=== PATIENT | male | born 1965 | race Caucasian/White ===

== ENCOUNTER 2025-05-27 12:53 | Inpatient (IN) | payer OTHER, SELFPAY ==
[2025-05-27] VITALS (11 sets, daily range): BP systolic 125–146; BP diastolic 80–102; BMI 25.8
--- NOTE | 2025-05-27 07:20 | ED.GENMED ---
History of Present Illness
General
Chief Complaint: Bowel Problem
Source: patient
Exam Limitations: none
Time Seen by Provider: 05/27/25 06:55
Nursing documentation reviewed up to this point in time: agreed with
History of Present Illness
History of Present Illness:
60-year-old male complaining of abdominal pain and constipation for the past 4 days he has had some nausea and vomiting.
Past History
Past History
ED Past Medical History: None
ED Past Surgical History: Orthopedic (left leg surgery)
Social History
Tobacco: Non-smoker
Alcohol: Occasional
Drug: None
Living: with family
Employment: Employed
Review of Systems
Review of Systems
Allergies reviewed?: Yes
All Other Systems: Not applicable
Constitutional: Reports no symptoms
EENT: Reports no symptoms
Respiratory: Reports no symptoms
Cardiac: Reports no symptoms
ABD/GI: Reports nausea, vomiting and constipated
: Reports no symptoms
Musculoskeletal: Reports no symptoms
Skin: Reports no symptoms
Neurological: Reports no symptoms
Endocrine: Reports no symptoms
Hematologic/Lymphatic: Reports no symptoms
Psychiatric: Reports no symptoms
Phy Exam
Physical Exam
Physical Exam:
Physical Exam
General: no apparent distress, not acutely ill
Neck: supple. no meningeal signs. normal posterior pharynx
Heart: s1/s2 regular rate and rhythm, no murmur. equal radial
pulses.
HEENT: Pupils equal round reactive to light, EOMI
Lungs: no acute respiratory distress. clear bilaterally
Abdomen: normal bowel sounds. right side abdominal tenderness. no CVAT, guaiac neg brown stool, no impaction
Neuro: alert and oriented. no focal neurological deficits cranial nerves II through XII intact
Skin: no rash
Psychiatric: well kept. interactive and cooperative
Extremities: no edema. no calf tenderness. negative homans. good distal pulses
Course
Orders/Labs/Results
Orders:
Orders
05/27/25 07:17
IV Insert/Care/Rem.- Treatment PRN
Urinalysis Reflex To Culture Urgent
05/27/25 07:18
CT Abd/Pel (IV only)-DH only Urgent
Comment:
Reason For Exam: right side abd pain
Iohexol [Omnipaque] See Protocol PO NOW STA
05/27/25 07:36
Complete Blood Count/With Diff Urgent
Comprehensive Metabolic Panel Urgent
Lipase Urgent
05/27/25 12:23
Admit/Transfer Patient As Directed
Co-Sign Provider:
Level of Care: Inpatient admission
Assign to:: Medical/Surgical
Physician / Group: Dr. Kunal Jenkins/Hospitalists
Diagnosis: Large bowel obstruction
Reason for Hospitalization: Large bowel obstruction
Expected length of stay greater than two midnights?: Yes
ELOS- Estimated Length of Stay in days: 3
I certify the patient meets the requirements for IP care: Yes
05/27/25 12:24
PRN Pain Medication Management As Directed
May give lesser potent ordered pain med per pt: Yes
preference::
Protocol:: Medication orders for pain may be administered in a
manner that supports deferring to patient preference
when the pt is:
- Requesting an ordered lesser potent pain medication.
Least to most potent pain medications are defined
as: acetaminophen < NSAID < tramadol < opioids
(morphine, oxycodone, hydromorphone).
- Requesting a lesser dose of the same medication IF
ORDERED.
- Requesting a less intrusive route of administration
if both routes are prescribed by the provider (PO <
IV).
05/27/25 12:26
Code Status As Directed
Resuscitation Status: Full Code
05/27/25 12:39
Consult Colorectal Surgery [ColoRectal Surgery Consult] Routine
Consulting Provider: Nadeem Archer
Was physician already notified: Yes
Reason for consult: Large Bowel Obstruction, concern for colon cancer on CT imaging
Abnormal Lab Results
05/27/25
07:36
WBC 12.0 H 10^3/uL
(4.8-10.8)
Absolute Neuts (auto) 10.3 H 10^3/uL
(1.4-6.5)
Neutrophils % 86.2 H %
(42.2-75.2)
Lymphocytes % 9.7 L %
(20.5-51.1)
Glucose 122 H mg/dl
(70-99)
Calcium 10.3 H mg/dl
(8.4-10.2)
05/27/25 07:36
05/27/25 07:36
Vital Signs
Initial and Last Documented VS:
Initial Vital Signs
Temp Pulse Resp BP Pulse Ox
98.0 F 80 16 125/90 97
05/27/25 06:21 05/27/25 06:21 05/27/25 06:21 05/27/25 06:21 05/27/25 06:21
Last Documented Vital Signs
Temp Pulse Resp BP Pulse Ox
98.4 F 74 16 131/82 96
05/27/25 10:17 05/27/25 08:43 05/27/25 08:43 05/27/25 12:00 05/27/25 12:00
MDM/Problems Addressed
Differential Diagnosis Includes:
Bowel obstruction diverticulitis, appendicitis
MDM/Problems Addressed:
60-year-old male with large bowel obstruction, bowel thickening concerning for colon cancer. Admit to hospitalist discussed with colorectal surgery who will see patient.
*Radiology
Radiology exam reviewed: radiology read reviewed (CT abdomen pelvis shows large bowel obstruction and thickened bowel wall)
*Pulse Oximetry
SaO2: 97
Oxygen Mode of Delivery: Room air
Patient hypoxic: no
*Critical Care Note
Total Time (30-74mins, 75-104mins- exclusive of procedures): Not Applicable
Patient Management
Social determinants of health affecting care: Living situation and Strong social support
Discussion with other providers: Hospitalist and Oceanographic Meteorologist (Colorectal surgery Dr. Archer)
Escalation/DeEscalation of care consider admission/obs:
Admit indicated
ED Attending Note
-
Portions of this chart may have been created with voice recognition software.� Occasional wrong word or��sound alike� substitutions may have occurred due to the inherent limitations of voice recognition software.
Discharge Plan
Departure
Patient Disposition: Admit
Date of Disposition: 05/27/25
Time of Disposition: 10:33
Admit to: Med/Surg
Presentation/result/management discussed w/ accepting MD/DO: Hospitalist
Patient with high blood pressure during this ER visit?: Yes
Condition: Good
Discharge Problem:
Large bowel obstruction
Interventions
Interventions:
*Risk Screen - Suicide Last Done: 05/27/25 06:21
*General Assessment Last Done: 05/27/25 06:21
*Neglect/Abuse Screening Last Done: 05/27/25 06:21
*ED- Fall Risk Assessment Last Done: 05/27/25 06:21
*ED COVID-19 Vaccine History Last Done: 05/27/25 06:21
UQ-Ampzsj-Vzicnhqyes Assessment Last Done: 05/27/25 06:38
[2025-05-27] MEDS: OMNIPAQUE 50 ML PO (07:45)
[2025-05-27 07:54] LABS: Hematocrit 46.1 % (39.0-52.0); Hemoglobin 15.9 g/dL (13.0-18.0); Mean Corp Hgb Conc. 34.5 g/dL (33.0-37.0); Mean Corpuscular Volume 84.4 fL (80.0-94.0); Nucleated Red Blood Cells % 0 % (-); Platelet Count 281 10^3/uL (130-400); Red Cell Dist. Width 13.2 % (11.5-14.5)
[2025-05-27 09:31] LABS: ALT (SGPT) 15 U/L (0-50); AST (SGOT) 18 U/L (17-59); Albumin 4.5 g/dl (3.5-5.0); Alkaline Phosphatase 87 U/L (38-126); Blood Urea Nitrogen 16 mg/dl (9-20); Calcium 10.3 mg/dl (8.4-10.2); Carbon Dioxide 22 mmol/L (22-30); Chloride 106 mmol/L (98-107); Estimated Creatinine Clearance 97 ml/min; Glucose 122 mg/dl (70-99); Lipase 47 U/L (23-300); Potassium 4.1 mmol/L (3.5-5.1); Sodium 138 mmol/L (135-145); Total Protein 7.0 g/dl (6.3-8.2); eGFR > 60.00
--- NOTE | 2025-05-27 10:44 | HPS.HSE ---
Family Physician
-
Family Physician: * NONE
Chief Complaint
-
Abdominal Discomfort, No Bowel Movement
History of Present Illness
60 y/o male with history of left lower extremity orthopedic surgery, presented with no bowel movement since May 23, 2025. Patient says that he has been having on and off abdominal pressure sensation, he also vomited this morning. He denied fever,
chills, chest pain, shortness of breath or any other symptoms.
Medical History
Past Medical History
Past Medical History: Reports None
Past Surgical History: Reports Orthopedic (Left Lower Extremity Surgery)
Social History
Tobacco: Non-smoker
Alcohol: Occasional
Drug: None
Family History
Family History: Not pertinent
Allergies / Home Medications
Allergies reflects when Allergies were last updated in [facility].
Home Medications with original date entered in [facility]
Allergy/Medication List:
Allergies
Allergy/AdvReac Type Severity Reaction Status Date / Time
No Known Allergies Allergy Unverified 05/27/25 07:44
Home Medications
No Meds [No Current Medications] 05/27/25
Review of Systems
-
A 12 point ROS was completed and negative except as noted: Yes
Physical Exam
Vital Signs
Vital Signs
Temp Pulse Resp BP Pulse Ox
98.4 F 74 16 135/83 97
05/27/25 10:17 05/27/25 08:43 05/27/25 08:43 05/27/25 10:00 05/27/25 10:00
Physical Exam
General: No Apparent Distress
HEENT: NormoCephalic and Moist mucous membranes
Respiratory: Clear
Cardiac: S1/S2 and Regular Rhythm
GI: Soft, Normal Bowel Sounds and Tender
Musculoskeletal: No Cyanosis and No Edema
Skin: Warm and Dry
Neuro: Awake, Alert and AO x 3
Psych: Calm and Intact Judgment/Insight
Laboratory Results
-
05/27/25 07:36
05/27/25 07:36
Laboratory Results
Total Bilirubin 1.0 mg/dl (0.2-1.3) 05/27/25 07:36
AST 18 U/L (17-59) 05/27/25 07:36
ALT 15 U/L (0-50) 05/27/25 07:36
Alkaline Phosphatase 87 U/L (38-126) 05/27/25 07:36
Lipase 47 U/L (23-300) 05/27/25 07:36
Impression/Plan
-
Assessment/Plan
Presentation with abdominal pressure, constipation, vomiting
Large bowel obstruction with transition at the proximal descending colon with associated eccentric wall thickening suspicious for malignancy
-NPO, IV fluids, and pain control
-Colorectal surgery consult
-Possible stent (transfer to [place] for the procedure) or surgery later today as per Dr. Archer
History of LLE orthopedic surgery
DVT Prophylaxis: Lovenox (may need to hold if patient is going for surgery today)
Code Status: Full Code
--- NOTE | 2025-05-27 12:38 | CON.CRS ---
Consultation
-
Date/Time Consultation Requested: 05/27/2025, 10:36
Date/Time Consultation Performed: 05/27/2025, 12:35
Requesting Provider: Kunal Jenkins MD
Performing Provider: Garry Acrher MD
Reason for Consultation: LBO
Medical History
-
Chief Complaint: Abdominal pain
History of Present Illness:
60-year-old male, with no PMH, presents to [facility] due to five days of constipation and abdominal pain. He states his last bowel movement was on May 22, 2025 and he thought it was was unusual given he ate several meals without
producing a bowel movement. He took senna and Colace a few days ago which made his constipation worse and well as increasing abdominal pain every 20 minutes. He has been nauseous and made himself vomit last evening because he felt so full. He
noticed a lump in his left upper quadrant of his abdomen and along with the abdominal pain, decided to go to the ER. He was nauseous yesterday but not today. He denies any unintentional weight loss. He is urinating without difficulty. Denies any
blood in his stool. His pain is about a 7 out of 10 and comes and goes. He describes the feeling in his abdomen like 'cement'. Recently he has started hiccuping over the past 24 hours.
He has never had a colonoscopy or Cologuard. Denies prior abdominal surgery. Denies a family history of colon or rectal cancer. Denies use of blood thinners. He has no past medical history and is not on any medications. WBC was 12.0 on
admission to the ER. His vitals have remained stable. CT A/P shows large bowel obstruction with transition at the proximal descending colon as above. At the level of transition, there is abnormal eccentric wall thickening which is suspicious for
malignancy. This could be further evaluated with colonoscopy. There is associated small volume free fluid within the pelvis. Given these findings, we have been consulted for surgical opinion.
Past Medical History
Past Medical History: None
Past Surgical History: Orthopedic (left leg )
Social History
Tobacco: Non-Smoker
Drug: None
Living: With Family
Family History
Family History: Reviewed & Not Pertinent
Allergies / Home Medications
Allergy/AdvReac Type Severity Reaction Status Date / Time
No Known Allergies Allergy Unverified 05/27/25 07:44
�Medication �Instructions �Recorded �Confirmed �Type
No Meds [No Current Medications] 05/27/25 05/27/25 History
Review of Systems
-
History Source: Patient
Abdomen/GI: Abdominal Pain, Nausea, Vomiting and Constipated
A 10 point review of systems was completed, and was negative except as per HPI.
Physical Exam
Vital Signs
Temp 98.4 F 05/27/25 10:17
Pulse 74 05/27/25 08:43
Resp Rate 16 05/27/25 08:43
Blood pressure 131/82 05/27/25 12:00
SaO2 96 05/27/25 12:00
05/26/25 05/27/25 05/28/25
06:59 06:59 06:59
Actual Weight 79.2 kg
Body Mass Index (BMI) 25.8
Lab Results / Allergies
05/27/25 07:36
05/27/25 07:36
WBC 12.0 10^3/uL (4.8-10.8) H 05/27/25 07:36
Hgb 15.9 g/dL (13.0-18.0) 05/27/25 07:36
Hct 46.1 % (39.0-52.0) 05/27/25 07:36
Plt Count 281 10^3/uL (130-400) 05/27/25 07:36
Abs Immat Gran (auto) 0.0 10^3/uL (0-0.05) 05/27/25 07:36
Neutrophils % 86.2 % (42.2-75.2) H 05/27/25 07:36
Allergy/AdvReac Type Severity Reaction Status Date / Time
No Known Allergies Allergy Unverified 05/27/25 07:44
Physical Exam
General: Well Developed and No Apparent Distress
GI: Tender (LLQ/RLQ moderate, mildly bloated) and Distended (mild)
Skin: Warm
Neuro: AO x 3
Psych: Calm
Data Reviewed
-
CT Scan: Image Personally Visualized and interpreted, Report Reviewed by me and Discussed with Physician
Labs: Labs Reviewed by me, Discussed with Physician and Discussed with Patient
Assessment / Plan
-
Assessment: 60-year-old male with no past medical history presents to [facility] complaining of abdominal pain and constipation for the past 5 days, found to have a large bowel obstruction with a transition point at the proximal descending
colon
Plan:
-I had a long discussion with the patient and his at bedside regarding options. Options include surgery today which would involve an open left colectomy with possible, and likely, colostomy bag. Other option could be possible transfer to [facility]
for a temporary colonic stent. Post stent we would then plan for a robotic left colectomy in a few weeks. Patient is opting for a stent at this time. Arrangements for transfer in progress. I have attempted to call and text the GI residents who
accept the cases, I will continue to try to reach out.
- Remain n.p.o. at this time
- May require an NG tube if continues to vomit
-Discussed with Dr. Archer and hospitalist
[2025-05-27] MEDS: NSS 1000 IV (14:07)
--- NOTE | 2025-05-27 14:22 | PTCARENOTE ---
Pt arrived to via stretcher, ambulated to bed independently gait steady. IVF initiated. Pt c/o generalized nausea but no urge need to vomit and abdominal cramping. Pt declined pain/ antinausea medications, warm blanket provided for comfort. Pt
and with concerns regarding timing/ urgency of transfer to [facility]. [facility] notified and to update RN upon acceptance of case. Pt educated on NPO status, verbalized understanding. Bed locked and in the lowest position, safety maintained.
Oriented to room and call marroquin, family at bedside.
--- NOTE | 2025-05-27 14:33 | W.PN.UPDATE ---
Update Note
Progress Note Update
I attempted to call both residents again for transfer. Both phones went to voicemail. I texted the numbers as well, still waiting a response. I tried to call the GI lab at [facility], they sent me to the procedure line to call. I was on hold for about 15
minutes and then the call ended. I then called the transfer center - they do not handle 'leave of absences'. I then left a voicemail on Dr. Almanzar's number at [facility] with GI.
[2025-05-27] MEDS: DILAUDID 0.5 MG IV ×2 (15:32→20:08)
--- NOTE | 2025-05-27 15:46 | PTCARENOTE ---
Pt with 50 cc clear emesis shortly following PRN dilaudid administration. Pt states 'feeling better' after vomiting. No PRN antiemetics currently ordered. Dr Jenkins notified and to order PRN zofran, care remains ongoing.
[2025-05-27] MEDS: LOVENOX 40 MG SC (17:16)
[2025-05-27] MEDS: ZOFRAN 4 MG IV ×2 (17:17→23:22)
[2025-05-28] VITALS (18 sets, daily range): BP systolic 133–161; BP diastolic 74–93
[2025-05-28] MEDS: DILAUDID 0.5 MG IV (00:08)
[2025-05-28] MEDS: NSS 1000 IV (03:41)
[2025-05-28] MEDS: DILAUDID 1 MG IV ×2 (04:13→08:07)
[2025-05-28 06:19] LABS: Urine Character Clear (Clear)
[2025-05-28 08:05] LABS: Hematocrit 48.3 % (39.0-52.0); Hemoglobin 16.1 g/dL (13.0-18.0); Mean Corp Hgb Conc. 33.3 g/dL (33.0-37.0); Mean Corpuscular Volume 85.3 fL (80.0-94.0); Platelet Count 351 10^3/uL (130-400); Red Cell Dist. Width 13.7 % (11.5-14.5)
--- NOTE | 2025-05-28 08:28 | W.PN.CRS1 ---
Today's Communication / Plan
-
Flexible sigmoidoscopy
Assessment/Plan
-
Assessment: 60-year-old male with no past medical history presents to [facility] complaining of abdominal pain and constipation for the past 5 days, found to have a large bowel obstruction with a transition point at the proximal descending
colon
Plan:
-The endoscopist at [facility] is requesting a sigmoidoscopy to confirm malignancy before transfer. This will be done this morning.
- Remain n.p.o. at this time
- May require an NG tube if continues to vomit
-Discussed plan with and patient at bedside.
- Patient will be marked for a stoma for potential surgery later today.
- Plan still in progress at this time depending on flexible sigmoidoscopy.
Subjective Data
Subjective Data
Date of Service: May 28, 2025
Patient states that his in a lot of pain. He is nauseous. He had a very rough morning.
Objective Data
-
Vital Signs
Temp Pulse Resp BP Pulse Ox
98.5 F 69 18 151/88 96
05/28/25 07:10 05/28/25 07:10 05/28/25 07:10 05/28/25 07:10 05/28/25 07:10
Intake & Output
05/27/25 05/28/25 05/29/25
06:59 06:59 06:59
Intake Total 1200 / 1200
Output Total 650 / 650
Balance 550 / 550
Intake:
IV fluids (Total) 1200 / 1200
Output:
Emesis 50 / 50
Urine, Voided 600 / 600
Other:
Number of immeasurable emeses? 1
Lab Results
05/28/25 06:04
Physical Exam
-
General: No Acute Distress and AOx3
Abdomen: Distended and Tender (Lower bilaterally)
Skin: Warm and Dry
[2025-05-28 08:39] LABS: Blood Urea Nitrogen 22 mg/dl (9-20); Calcium 9.4 mg/dl (8.4-10.2); Carbon Dioxide 20 mmol/L (22-30); Chloride 107 mmol/L (98-107); Estimated Creatinine Clearance 97 ml/min; Glucose 114 mg/dl (70-99); Magnesium 2.2 mg/dl (1.6-2.3); Potassium 4.2 mmol/L (3.5-5.1); Sodium 140 mmol/L (135-145); eGFR > 60.00
[2025-05-28 08:54] LABS: CEA 1.30 ng/ml
[2025-05-28 08:56] LABS: INR 1.08; PT 14.3 Sec (11.4-14.6)
[2025-05-28 08:57] LABS: APTT 27.3 Sec (23.4-35.0)
--- NOTE | 2025-05-28 09:00 | WOUNDNOTE ---
MITZY RN NOTE: Stoma sited patient as requested all quadrants. Assessed lying and sitting at side of bed, shaved abdomen with electric razor. Avoided creases and scars, LUQ marked 6.5cm from midline and 5cm proximal from umbilical line. RUQ marked
7cm from midline and 5 cm proximal from umbilical line. LLQ marked 7cm from midline and 3cm distal from umbilical line. RLQ marked 6.5cm from midline and 2cm distal from umbilical line. Patient and Malinda at bedside aware ostomy nurse will follow
post op if needed. Answered all questions.
[2025-05-28] MEDS: INVANZ IV (09:29)
--- NOTE | 2025-05-28 09:44 | PTCARENOTE ---
Assumed care of patient at 0720 am. Patient was in 8/[address] Archer asked RN to give 2 tap water enemas around 7:45am. RN was unable to administer enemas, as patients pain prohibited him from turning on his side. RN texted [employer] INS[employer]
for a one time Dilaudid order, since pt was not due for next dose for another 30 minutes. Order was eventually obtained and Dilaudid was administered. Enemas x2 were administered per order. Pt only had small flecks of stool with water come out
rectum post enema. No available SCD machines were available on nursing unit, RN called [facility] to have a machine dropped off for patient. Pre-op hygiene performed. IV antibiotic to be given in procedural area was strung up and ready to go for pre-op RN
on IV pole. RN called pre-op RN to tell her about IV abx being already on IV pole for her administration. See MAr/flowsheets for further care details.
[2025-05-28] MEDS: ATIVAN 2 MG IV (11:52)
[2025-05-28] MEDS: LR 1000 IV (12:55)
--- NOTE | 2025-05-28 12:58 | PTCARENOTE ---
Received patient back from pacu, vital signs stable, pt is drowsy due to recent Ativan administration in pacu, arousable to speech, is at bedside
[2025-05-28] MEDS: INVANZ 60 MG IV (13:01)
--- NOTE | 2025-05-28 14:31 | W.PN.UPDATE ---
Update Note
Progress Note Update
Lower endoscopy to the descending colon reveals an obstructing carcinoma (biopsies taken). There was a 12mm pedunculated polyp in the mid rectum (not resected).
Discussed the case with [facility] and they are unable to perform a colonic stent today. I feel the patient needs to be decompressed today and recommend surgery. I spoke with the patient and his and they agree.
The plan is for a laparotomy with colon resection, possible ostomy, possible subtotal colectomy depending upon the findings. I again reviewed the risks, benefits and alternatives, as well as the typical recovery and functional results. All questions
answered and arrangements are in progress for the operating room.
--- NOTE | 2025-05-28 14:39 | W.PN.HOSP.TC ---
Today's Communication/Plan
-
Obstructing mass in colon from flexible sigmoidoscopy
Surgery today with colorectal surgeon
Assessment / Plan
Assessment / Plan
Physical Exam
General: No Apparent Distress
HEENT: Normocephalic and Moist mucous membranes
Respiratory: Clear
Cardiac: S1/S2 and Regular Rhythm
GI: Soft, Normal Bowel Sounds and Tender
Musculoskeletal: No Cyanosis and No Edema
Skin: Warm and Dry
Neuro: Awake, Alert and AO x 3
Psych: Calm and Intact Judgment/Insight
Assessment/Plan
Presentation with abdominal pressure, constipation, vomiting
Large bowel obstruction with transition at the proximal descending colon with associated eccentric wall thickening suspicious for malignancy
Ulcerated completely obstructing large circumferential mass in the descending colon on Sigmoidoscopy on 05/28/25
12 mm polyp in the mid rectum - semi-pedunculated (polypectomy not attempted) on 05/28/25
-NPO, IV fluids, and pain control
-Colorectal surgery consult -- endoscopist at [facility] asked for a sigmoidoscopy to confirm malignancy before transfer
-Sigmoidoscopy took place on 05/28/25, with findings as above
-Possible stent (transfer to [facility] for the procedure) -- but [facility] said they are unable to perform a colonic stent today.
-Colorectal surgeon feels the patient needs to be decompressed today and recommended surgery -- patient and his are in agreement
History of LLE orthopedic surgery
DVT Prophylaxis: Lovenox (may need to hold if patient is going for surgery today)
Code Status: Full Code
Anticipated Discharge: > 48 hours
Subjective/Interval History
-
Date of Service: May 28, 2025
Patient was seen and examined. He reported discomfort with NG tube that anesthesia/colorectal team placed; they were notified.
Objective Data
-
Labs:
Laboratory Results
05/28/25 05/28/25
06:04 08:26
WBC 15.5 H
Hgb 16.1
Hct 48.3
Plt Count 351 D
PT 14.3
INR 1.08
APTT 27.3
Sodium 140
Potassium 4.2
Chloride 107
Carbon Dioxide 20 L
BUN 22 H
Creatinine 0.8
Glucose 114 H
Calcium 9.4
Vital Signs:
Vital Signs
Temp Pulse Resp BP Pulse Ox
98.7 F 80 18 146/85 94
05/28/25 13:41 05/28/25 13:41 05/28/25 13:41 05/28/25 13:41 05/28/25 13:41
I&O
05/27/25 05/28/25 05/29/25
06:59 06:59 06:59
Intake Total 1200 / 1200 375 / 375
Output Total 650 / 650 300 / 300
Balance 550 / 550 75 / 75
--- NOTE | 2025-05-28 14:51 | PTCARENOTE ---
Patient taken to OR. Dr Archer came by to discuss with family surgery given findings on flex sigmoidoscopy. Vitals remained stable while he was on unit before leaving.
--- NOTE | 2025-05-28 17:55 | W.OR.COLCA ---
Colon Cancer Post Op Note
Immediate Post Op
Primary Surgeon: Garry Archer MD
Assistants: NEERAJ Enciso and ALOK Ny
Pre-op Diagnosis: Obstructing descending colon cancer
Post-op Diagnosis: Same
Procedure Performed: Subtotal colectomy with ileosigmoid anastomosis
Anesthesia Type: GET
Specimen / Cultures: Subtotal colon
Estimated Blood Loss: 70cc
Complications: None
Operative Findings: Obstructing carcinoma in the proximal descending colon
Markedly enlarged cecum with mild inflammation
No evidence of metastatic disease
Stapled functional end-to-end anastomosis
Left message with an update on his 's phone
Colon Resection
Colon Resection
Operation performed with curative intent: Yes
Tumor Location: Descending Colon
Total Abdominal Colectomy: Ileocolic, Right Colic and Middle Colic
Other: complete large bowel obstruction
[2025-05-28] MEDS: DILAUDID 0.25 MG IV (18:04)
--- NOTE | 2025-05-28 18:17 | W.PN.UPDATE ---
Update Note
Progress Note Update
Per Dr. Archer, patient's surgery (subtotal colectomy) went well, if patient remains stable going into tomorrow, can transfer patient to the colorectal surgery service.
--- NOTE | 2025-05-28 18:49 | PTCARENOTE ---
2 south hand off being performed. PACU [facility] receiving heat curer RN
[2025-05-28] MEDS: TORADOL 15 MG IV (19:53)
[2025-05-28] MEDS: LOVENOX 40 MG SC (19:53)
[2025-05-28] MEDS: NORMOSOL-R/PLASMALYTE-A 1000 IV (19:53)
--- NOTE | 2025-05-29 00:41 | TRANSFER ---
Received report from RN FACULTY ROBERTA - received pt in bed at 1900 s/p subtotal colectomy midline w primaseal, scant drainage noted. Pt drowsy but arousable to verbal, VSS. Abdomen tender to palpation. Guaman catheter draining clear yellow urine. NGT to
left nare cont suction with bilious o/p. Family at bedside, Care ongoing.
[2025-05-29] MEDS: TORADOL 15 MG IV ×4 (01:12→19:35)
[2025-05-29 03:09] VITALS: BP 117/77
[2025-05-29] MEDS: NORMOSOL-R/PLASMALYTE-A 1000 IV ×3 (04:13→19:38)
[2025-05-29] MEDS: DILAUDID 1 MG IV ×2 (05:07→12:08)
[2025-05-29] MEDS: ZOFRAN 4 MG IV ×2 (05:07→12:14)
[2025-05-29 05:55] VITALS: BMI 25.3
[2025-05-29 07:00] LABS: Hematocrit 39.8 % (39.0-52.0); Hemoglobin 13.4 g/dL (13.0-18.0); Mean Corp Hgb Conc. 33.7 g/dL (33.0-37.0); Mean Corpuscular Volume 84.9 fL (80.0-94.0); Platelet Count 254 10^3/uL (130-400); Red Cell Dist. Width 13.6 % (11.5-14.5)
[2025-05-29 07:20] VITALS: BP 128/82
[2025-05-29 07:22] LABS: Blood Urea Nitrogen 19 mg/dl (9-20); Calcium 8.2 mg/dl (8.4-10.2); Carbon Dioxide 29 mmol/L (22-30); Chloride 106 mmol/L (98-107); Estimated Creatinine Clearance 111 ml/min; Glucose 123 mg/dl (70-99); Magnesium 2.3 mg/dl (1.6-2.3); Potassium 3.9 mmol/L (3.5-5.1); Sodium 136 mmol/L (135-145); eGFR > 60.00
--- NOTE | 2025-05-29 08:04 | W.PN.HOSP.TC ---
Today's Communication/Plan
-
Patient is stable, pain as expected
Discussed with patient's nurse
Discussed with Dr. Archer of colorectal surgery, okay to transfer the patient to his service today
Assessment / Plan
Assessment / Plan
Physical Exam
General: No Apparent Distress
HEENT: Normocephalic and Moist mucous membranes
Respiratory: Clear
Cardiac: S1/S2 and Regular Rhythm
GI: Soft, Normal Bowel Sounds and Tender
Musculoskeletal: No Cyanosis and No Edema
Skin: Warm and Dry
Neuro: Awake, Alert and AO x 3
Psych: Calm and Intact Judgment/Insight
Assessment/Plan
Presentation with abdominal pressure, constipation, vomiting
Large bowel obstruction with transition at the proximal descending colon with associated eccentric wall thickening suspicious for malignancy
Ulcerated completely obstructing large circumferential mass in the descending colon on Sigmoidoscopy on 05/28/25 status post subtotal colectomy with ileosigmoid anastomosis on 05/29/25
12 mm polyp in the mid rectum - semi-pedunculated (polypectomy not attempted) on 05/28/25
-NPO, IV fluids, and pain control
-Colorectal surgery consult -- endoscopist at [facility] asked for a sigmoidoscopy to confirm malignancy before transfer
-Sigmoidoscopy took place on 05/28/25, with findings as above
-Possible stent (transfer to [facility] for the procedure) -- but [facility] said they are unable to perform a colonic stent as of 05/28/25
-Colorectal surgeon feels the patient needs to be decompressed today and recommended surgery: surgery performed subtotal colectomy with ileosigmoid anastomosis on 05/29/25
History of LLE orthopedic surgery
DVT Prophylaxis: Lovenox
Code Status: Full Code
Anticipated Discharge: > 48 hours
Subjective/Interval History
-
Date of Service: May 29, 2025
Patient was seen and examined. He reported abdominal pain as expected from his surgery as well as some shortness of breath from the abdominal pain. No fever, chills or any other complaints or new symptoms.
Objective Data
-
Labs:
Laboratory Results
05/29/25
06:01
WBC 13.1 H
Hgb 13.4
Hct 39.8
Plt Count 254 D
Sodium 136
Potassium 3.9
Chloride 106
Carbon Dioxide 29
BUN 19
Creatinine 0.7
Glucose 123 H
Calcium 8.2 L
Vital Signs:
Vital Signs
Temp Pulse Resp BP Pulse Ox
98.9 F 87 16 128/82 98
05/29/25 07:20 05/29/25 07:20 05/29/25 07:20 05/29/25 07:20 05/29/25 07:20
I&O
05/28/25 05/29/25 05/30/25
06:59 06:59 06:59
Intake Total 1200 / 1200 1909
Output Total 650 / 650 1849 / 1849
Balance 550 / 550 60 / 60
--- NOTE | 2025-05-29 09:36 | W.PN.CRS1 ---
Today's Communication / Plan
-
Lovenox
Maintain NG tube
Await bowel function
Out of bed
Assessment/Plan
-
POD#1 Subtotal colectomy with ileosigmoid anastomosis
WBC 13.1, Hgb 13.4, Vitals normal
NGT: 400ml
- Maintain NG tube. Await bowel function.
- Okay for mouth swabs. Otherwise NPO. Continue IV fluids.
- Out of bed as tolerated
- Maintain Guaman until a.m.
- OR pathology pending
- Pain medication: Tylenol and Toradol standing, Dilaudid as needed
- Start Lovenox for DVT prophylaxis. Teds and SCDs in place.
- Will need Eliquis due to colon cancer on discharge for DVT prophylaxis for 1 month
Subjective Data
Procedure
05/28/2025- Subtotal colectomy with ileosigmoid anastomosis
Subjective Data
Date of Service: May 29, 2025
Patient states he is sore this morning. He is also very thirsty. He would like to get a bed. He has not noticed any bowel function yet.
Objective Data
-
Vital Signs
Temp Pulse Resp BP Pulse Ox
98.9 F 87 16 128/82 98
05/29/25 07:20 05/29/25 07:20 05/29/25 07:20 05/29/25 07:20 05/29/25 07:20
Intake & Output
05/28/25 05/29/25 05/30/25
06:59 06:59 06:59
Intake Total 1200 / 1200 1909
Output Total 650 / 650 1849
Balance 550 / 550 60 / 60
Intake:
Oral fluids 0 / 0
IV fluids (Total) 1200 / 1200 1819
normosol 125 / 125
Amount instilled into GI Tube ( 90 / 90
Total)
[place] Sump 90 / 90
Output:
Emesis 50 / 50
Gastrointestinal tube output ( 400 / 400
Total)
[place] Sump 400 / 400
Urine, [place] 1150 / 1150
Urine, Voided 600 / 600 300 / 300
Other:
Number of immeasurable emeses? 1
Lab Results
05/29/25 06:01
05/29/25 06:01
Physical Exam
-
General: No Acute Distress and AOx3
Abdomen: Soft, Non Distended and Tender (Around midline incision)
Skin: Warm and Dry
Wound: Dressing in Place
[2025-05-29 11:15] VITALS: BP 118/76
--- NOTE | 2025-05-29 12:38 | PTCARENOTE ---
1205-Pt repeatedly asking to get back into bed immediately following ambulation to the chair. Pt c/o abdominal pain 06/06, PRN pain medication and PRN antiemetic provided. Education provided regarding return of bowel function, benefits of early
ambulation/mobility, risk for blood clot/ pneumonia, and easier breathing due to positional change sitting up vs laying. Pt verbalized understanding. Pt offered warm blanket, declined at this time.
1230- Pt reassessed, verbalized ' feeling much better' and ' that the pain meds kicked in'. Pt then asking to get back into bed at 1300. Pt again educated of need to sit OOB and ambulate as able for recovery. Pt verbalized understanding. Care
remains ongoing.
[2025-05-29 15:10] VITALS: BP 121/74
--- NOTE | 2025-05-29 17:15 | CM ---
Met pt and Malinda in room . Baseline pt is Alert awake oriented who lives in a 2 story home with 3 step to enter and 15 steps to bed and bathroom. He is independent in driving and in all activities of daily living.He was offered VN he declined
need.He currently in NPO with NG tube after surgery.
No VN hx / No SNF history
Pharmacy [facility]P [facility] Pt is [place] and has physical every 6 mon [employer]
PLAN Home Declined VN
[2025-05-29] MEDS: LOVENOX 40 MG SC (17:41)
[2025-05-29] MEDS: DILAUDID 0.5 MG IV (17:46)
[2025-05-29 19:00] VITALS: BP 137/77
[2025-05-29 23:10] VITALS: BP 117/78
[2025-05-30] MEDS: TORADOL 15 MG IV (01:45)
[2025-05-30] MEDS: NORMOSOL-R/PLASMALYTE-A 1000 IV ×3 (03:35→20:32)
[2025-05-30] MEDS: DILAUDID 0.5 MG IV (03:55)
[2025-05-30 05:59] VITALS: BMI 24.7
[2025-05-30 07:10] VITALS: BP 132/82
[2025-05-30 07:55] LABS: Hematocrit 36.3 % (39.0-52.0); Hemoglobin 11.9 g/dL (13.0-18.0); Mean Corp Hgb Conc. 32.8 g/dL (33.0-37.0); Mean Corpuscular Volume 87.3 fL (80.0-94.0); Nucleated Red Blood Cells % 0 % (-); Platelet Count 220 10^3/uL (130-400); Red Cell Dist. Width 13.2 % (11.5-14.5)
[2025-05-30 08:17] LABS: Blood Urea Nitrogen 17 mg/dl (9-20); Calcium 8.2 mg/dl (8.4-10.2); Carbon Dioxide 31 mmol/L (22-30); Chloride 104 mmol/L (98-107); Estimated Creatinine Clearance 97 ml/min; Glucose 95 mg/dl (70-99); Potassium 3.7 mmol/L (3.5-5.1); Sodium 138 mmol/L (135-145); eGFR > 60.00
[2025-05-30] MEDS: TORADOL IV (08:57)
--- NOTE | 2025-05-30 09:02 | W.PN.CRS1 ---
Today's Communication / Plan
-
maintain herring, await further bowel function
OOB with PT/OT
hold toradol/lovenox
Assessment/Plan
-
POD#2 Subtotal colectomy with ileosigmoid anastomosis
WBC 8.7 (13.1), Hgb 11.9 (13.4)
Tmax: 100.0.
NGT: 2100ml
- Maintain NG tube. Await further bowel function. When passing more flatus, will perform a clamping trial.
- Okay for mouth swabs. Otherwise NPO. Continue IV fluids.
- Out of bed as tolerated. PT/OT consulted.
- Maintain Herring another day (more bloody today with clots)
- OR pathology pending
- Pain medication: Tylenol standing, Dilaudid as needed. Toradol held due to bloody urine.
- Hold Lovenox today due to bloody herring. Teds and SCDs in place.
- Will need Eliquis due to colon cancer on discharge for DVT prophylaxis for 1 month
- Trend labs
- Add spray and lozenge for NGT irritation.
Subjective Data
Procedure
05/28/2025- Subtotal colectomy with ileosigmoid anastomosis
Subjective Data
Date of Service: May 30, 2025
Patient states he has a little gas. He had a small liquid stool last night. He is still in some pain. Denies nausea or vomiting. He is craving ice chips. The NGT is bothering him.
Objective Data
-
Vital Signs
Temp Pulse Resp BP Pulse Ox
98.1 F 82 16 132/82 95
05/30/25 07:10 05/30/25 07:10 05/30/25 07:10 05/30/25 07:10 05/30/25 07:10
Intake & Output
05/29/25 05/30/25 05/31/25
06:59 06:59 06:59
Intake Total 1909 1530 / 1530
Output Total 1849 3325 / 3325
Balance 60 60 -1794 / -1794
Intake:
Oral fluids 0 / 0
IV fluids (Total) 1820 / 1820 1440 / 1440
normosol 125 / 125
Amount instilled into GI Tube ( 90 / 90 /
Total)
[place] Sump 90 / 90 90 /
Output:
Gastrointestinal tube output ( 400 / 400 2099 / 2099
Total)
[place] Sump 400 / 400 2099 / 2099
Urine, [place] 1150 / 1150 1225 / 1225
Urine, Voided 300 / 300
Lab Results
05/30/25 06:52
05/30/25 06:52
Physical Exam
-
General: No Acute Distress and AOx3
Abdomen: Soft, Distended (mild) and Tender (around incision)
Wound: Dressing in Place
[2025-05-30] MEDS: DILAUDID 1 MG IV ×3 (09:37→23:59)
[2025-05-30 09:56] VITALS: BMI 24.7
--- NOTE | 2025-05-30 11:06 | CM ---
CM following re: discharge planning.
Reviewed pt's chart, met with pt and daughter Irina at bedside.
Pt is POD#2 Subtotal colectomy with ileosigmoid anastomosis, continue supportive care, maintain [place], NGT, out of bed to ambulate.
Per Colorectal surgery pt will need up to 30 days of Eliquis upon the discharge. Free 30 day Eliquis coupon with $10.00 monthly coupon in case pt needs longer that 30 days given to the pt.
D/C plan: home with anticipated no after care VN services. Family to transport at discharge.
CM will follow with discharge plan updates as hospitalization progresses
[2025-05-30 13:25] VITALS: BP 132/76
[2025-05-30 14:06] VITALS: BP 132/76; PULSE 85
--- NOTE | 2025-05-30 14:37 | PTCARENOTE ---
NGT clamped per order. Pt educated on symptoms to alert nurse of intolerance, pt verbalized understanding. Care ongoing.
[2025-05-30 15:10] VITALS: BP 129/79
--- NOTE | 2025-05-30 20:00 | PTCARENOTE ---
Pt. calling stating 06/06 pain in the abdomen describing it as a cramping pain and bloating. Dressing intact with mod old drainage and belly round but soft to palpation. Pt. requesting to have NGT resumed to suction. Explained to pt. that NGT would
remain in overnight and he would continue to be NPO with ice chips. Pt. verbalized his understanding and stated he felt that leaving the NGT off is, 'too risky.' NGT resumed per previous orders and 300ml of brown output immediately obtained.
[2025-05-30 23:10] VITALS: BP 138/75
[2025-05-31] MEDS: ZOFRAN 4 MG IV (04:06)
[2025-05-31] MEDS: NORMOSOL-R/PLASMALYTE-A 1000 IV ×3 (04:08→21:20)
[2025-05-31] MEDS: DILAUDID 0.5 MG IV ×2 (04:08→22:24)
[2025-05-31 07:26] LABS: Hematocrit 32.8 % (39.0-52.0); Hemoglobin 10.9 g/dL (13.0-18.0); Mean Corp Hgb Conc. 33.2 g/dL (33.0-37.0); Mean Corpuscular Volume 86.3 fL (80.0-94.0); Platelet Count 230 10^3/uL (130-400); Red Cell Dist. Width 13.2 % (11.5-14.5)
[2025-05-31 07:38] VITALS: BP 138/77
[2025-05-31 08:00] LABS: Blood Urea Nitrogen 13 mg/dl (9-20); Calcium 8.1 mg/dl (8.4-10.2); Carbon Dioxide 29 mmol/L (22-30); Chloride 102 mmol/L (98-107); Estimated Creatinine Clearance > 125 ml/min; Glucose 84 mg/dl (70-99); Potassium 3.6 mmol/L (3.5-5.1); Sodium 137 mmol/L (135-145); eGFR > 60.00
[2025-05-31] MEDS: KCL 160 MEQ IV (11:43)
[2025-05-31 11:49] VITALS: BP 130/76
--- NOTE | 2025-05-31 12:36 | W.PN.CRS1 ---
Today's Communication / Plan
-
As above
Assessment/Plan
-
60-year-old male, healthy, who presented with large bowel obstruction due to obstructing mass in the descending colon; underwent sigmoidoscopy with biopsy of mass; due to logistic issues with advanced GI at [facility], unable to transfer for colon stent
without increased risk of perforation; underwent semi-urgent surgery
POD 3 open subtotal colectomy with ileosigmoid anastomosis
AFVSS
WBC 10.8, Hb 10.9 from 11.9, CR 0.6
�Perform clamp trial; if less than 150ml after 4 hours, okay to pull and start clears
�No p.o. meds tonight; likely start p.o. meds tomorrow if tolerating clears
� Hold DVT PPx today; if Hb stable tomorrow, restart
�If no concerns for bleeding at time of discharge, will need Eliquis 2.5 mg twice daily for extended DVT prophylaxis
� Continue pain control with Tylenol, Toradol and Dilaudid as needed
�Encourage IS/OOB
�DC Guaman, monitor for void
Subjective Data
Procedure
05/28/2025- Subtotal colectomy with ileosigmoid anastomosis
Subjective Data
Date of Service: May 31, 2025
No overnight events.
Pain controlled.
Denies nausea/vomiting.
Passing flatus and small amount of stool.
Guaman in place, no longer bloody.
Objective Data
-
Vital Signs
Temp Pulse Resp BP Pulse Ox
98.7 F 75 16 130/76 97
05/31/25 11:49 05/31/25 11:49 05/31/25 11:49 05/31/25 11:49 05/31/25 11:49
Intake & Output
05/30/25 05/31/25 06/01/25
06:59 06:59 06:59
Intake Total 2970 / 2970 3390 / 3390
Output Total 3325 / 3325 3200 / 3200
Balance -355 / -355 190 / 190
Intake:
Oral fluids 360 / 360
IV fluids (Total) 2880 / 2880 2880 / 2880
Amount instilled into GI Tube ( 90 / 90 150 / 150
Total)
[place] Sump 90 / 90 150 / 150
Output:
Gastrointestinal tube output ( 2099 1650 / 1650
Total)
[place] Sump 2099 / 2099 1650 / 1650
Urine, [place] 1225 / 1225 1550 / 1550
Other:
Number of unmeasured liquid
stools
Rectum 1
Lab Results
05/31/25 05:55
05/31/25 05:55
Physical Exam
-
General: No Acute Distress and AOx3
HEENT: Other (NG tube)
Abdomen: Soft, Distended (Mildly distended improved) and Tender (Appropriately tender near midline incision)
Skin: Warm and Dry
Wound: Dressing in Place (Aquacel in place)
--- NOTE | 2025-05-31 15:41 | PTCARENOTE ---
Per order, NGT reconnected to suction at 1500 with a residual of 140 ml. After about 15 minutes residual was [address] Peralta made aware. NGT to remain and placed on continuous suction at 80 mmHg.
[2025-05-31] MEDS: DILAUDID 1 MG IV (16:04)
[2025-05-31 23:55] VITALS: BP 138/76
[2025-06-01] MEDS: DILAUDID 0.5 MG IV (02:24)
[2025-06-01] MEDS: HYDROCORTISONE 1% CREAM 1 APPLIC TOPICAL ×3 (02:24→21:28)
[2025-06-01] MEDS: NORMOSOL-R/PLASMALYTE-A 1000 IV ×3 (05:56→21:27)
[2025-06-01 06:24] LABS: Hematocrit 32.8 % (39.0-52.0); Hemoglobin 11.2 g/dL (13.0-18.0); Mean Corp Hgb Conc. 34.1 g/dL (33.0-37.0); Mean Corpuscular Volume 84.8 fL (80.0-94.0); Nucleated Red Blood Cells % 0 % (-); Platelet Count 298 10^3/uL (130-400); Red Cell Dist. Width 12.5 % (11.5-14.5)
[2025-06-01 06:41] LABS: Blood Urea Nitrogen 11 mg/dl (9-20); Calcium 8.4 mg/dl (8.4-10.2); Carbon Dioxide 25 mmol/L (22-30); Chloride 100 mmol/L (98-107); Estimated Creatinine Clearance > 125 ml/min; Glucose 87 mg/dl (70-99); Magnesium 2.1 mg/dl (1.6-2.3); Potassium 3.4 mmol/L (3.5-5.1); Sodium 135 mmol/L (135-145); eGFR > 60.00
[2025-06-01 07:10] VITALS: BP 139/82
--- NOTE | 2025-06-01 12:26 | W.PN.GS2 ---
Addendum entered and electronically signed by Alex Capellan MD 06/01/25 12:53:
Patient seen and examined. Agree with assessment plan as documented below.
60-year-old male who presented with large bowel obstruction due to obstructing mass in the descending colon; underwent sigmoidoscopy with biopsy of mass d/t increased risk of perforation; underwent semi-urgent surgery
POD 4 open subtotal colectomy with ileosigmoid anastomosis
AFVSS
Mild leukocytosis, H/H stable
Passing multiple stools/flatus. High volume output from NGT, suspect large ice chip intake contributing
Plan:
Clamp trial of NGT
C/W IVF
OOB/Ambulate
Tylenol and Toradol with Dilaudid prn, attempt to minimize narcotics
Lovenox and SCDs for VTE ppx
Original Note:
Today's Communication / Plan
-
NGT clamp trial
Assessment / Plan
-
60-year-old male who presented with large bowel obstruction due to obstructing mass in the descending colon; underwent sigmoidoscopy with biopsy of mass d/t increased risk of perforation; underwent semi-urgent surgery
POD 4 open subtotal colectomy with ileosigmoid anastomosis
AFVSS
Mild leukocytosis
H/H stable
Passing multiple stools/flatus. High volume output from NGT, suspect large ice chip intake contributing
Plan:
Clamp trial of NGT
C/W IVF
OOB/Ambulate
Tylenol and Toradol with Dilaudid prn, attempt to minimize narcotics
Lovenox and SCDs for VTE ppx
Subjective Data
-
Date of Service: June 01, 2025
Pt seen and examined at bedside with Dr. Capellan. Denies n/v. Incisional pain present, does have mild nausea after taking narcotics. Sore throat around NGT. Passing stools and flatus. Stool initially loose now more solid.
Objective Data
-
Intake and Output
05/31/25 06/01/25 06/02/25
06:59 06:59 06:59
Intake Total 3390 / 3390 3110 / 3110 30 / 30
Output Total 3200 / 3200 3285 / 3285 675 / 675
Balance 190 / 190 -175 / -175 -645 / -645
Intake:
Oral fluids 360 / 360 360 / 360
IV fluids (Total) 2880 / 2880 2440 / 2440
IV piggybacks 160 / 160
Amount instilled into GI Tube ( 150 / 150 150 / 150 30 / 30
Total)
[place] Sump 150 / 150 150 / 150 30 / 30
Output:
Gastrointestinal tube output ( 1650 / 1650 2150 / 2150 525 / 525
Total)
[place] Sump 1650 / 1650 2150 / 2150 525 / 525
Urine, [place] 1550 / 1550 150 / 150
Urine, Voided 1135 / 1135
Other:
Number of unmeasured liquid
stools
Rectum 1
Vital Signs
Temp Pulse Resp BP Pulse Ox
98.7 F 71 16 139/82 96
06/01/25 07:10 06/01/25 07:10 06/01/25 07:10 06/01/25 07:10 06/01/25 07:10
Lab Results
06/01/25 05:17
06/01/25 05:17
Calcium 8.4 mg/dl (8.4-10.2) 06/01/25 05:17
Magnesium 2.1 mg/dl (1.6-2.3) 06/01/25 05:17
Total Bilirubin 1.0 mg/dl (0.2-1.3) 05/27/25 07:36
AST 18 U/L (17-59) 05/27/25 07:36
ALT 15 U/L (0-50) 05/27/25 07:36
Alkaline Phosphatase 87 U/L (38-126) 05/27/25 07:36
Total Protein 7.0 g/dl (6.3-8.2) 05/27/25 07:36
Albumin 4.5 g/dl (3.5-5.0) 05/27/25 07:36
Physical Exam
-
NAD
ABD soft, minimal distention, incisional tenderness
Midline incision with intact dressing, shadowing present
[2025-06-01] MEDS: TORADOL 15 MG IV (14:47)
[2025-06-01 15:15] VITALS: BP 161/88
--- NOTE | 2025-06-01 15:16 | PTCARENOTE ---
NGT clamped for 4 hours per order. after connecting back to suction for 15 mins Pt had 250 ml of dark green output. DOCKETING SPECIALIST nikole made aware, and ordered to remove NGT. Pt made aware of removal of NGT. Pt very anxious about removal, and asking to leave
NGT in place for a little bit longer. DOCKETING SPECIALIST made aware and ordered for NGT to remain clamped unless pt becomes nauseous. care ongoing.
[2025-06-01] MEDS: LOVENOX 40 MG SC (17:10)
[2025-06-01] MEDS: DILAUDID 1 MG IV (21:28)
[2025-06-01 23:10] VITALS: BP 130/80
--- NOTE | 2025-06-01 23:44 | PTCARENOTE ---
pt tolerating NGT clamped @ this time, educated on need to call RN if c/o of n/v immediately. Pt cont of small loose BM.
[2025-06-02] MEDS: TORADOL 15 MG IV (02:38)
[2025-06-02] MEDS: NORMOSOL-R/PLASMALYTE-A 1000 IV (05:14)
[2025-06-02 07:00] VITALS: BP 136/82
[2025-06-02 08:22] LABS: Hematocrit 32.2 % (39.0-52.0); Hemoglobin 11.1 g/dL (13.0-18.0); Mean Corp Hgb Conc. 34.5 g/dL (33.0-37.0); Mean Corpuscular Volume 83.9 fL (80.0-94.0); Platelet Count 319 10^3/uL (130-400); Red Cell Dist. Width 12.6 % (11.5-14.5)
[2025-06-02] MEDS: KCL 160 MEQ IV (08:34)
[2025-06-02] MEDS: HYDROCORTISONE 1% CREAM 1 APPLIC TOPICAL ×2 (08:37→22:54)
[2025-06-02 08:48] LABS: Blood Urea Nitrogen 12 mg/dl (9-20); Calcium 8.3 mg/dl (8.4-10.2); Carbon Dioxide 24 mmol/L (22-30); Chloride 101 mmol/L (98-107); Estimated Creatinine Clearance > 125 ml/min; Glucose 100 mg/dl (70-99); Potassium 3.6 mmol/L (3.5-5.1); Sodium 134 mmol/L (135-145); eGFR > 60.00
--- NOTE | 2025-06-02 09:29 | W.PN.GS2 ---
Addendum entered and electronically signed by Alex Capellan MD 06/02/25 09:53:
Patient seen and examined. Agree with assessment plan as documented below.
60-year-old male who presented with large bowel obstruction due to obstructing mass in the descending colon; underwent sigmoidoscopy with biopsy of mass d/t increased risk of perforation; underwent semi-urgent surgery
POD 5 open subtotal colectomy with ileosigmoid anastomosis
AFVSS
Mild leukocytosis, slight up trend
H/H stable
Passing multiple stools/flatus. High volume output from NGT, suspect large ice chip intake contributing
Plan:
NGT removed
Follow on sips/chips
C/W IVF
OOB/Ambulate
Tylenol and Toradol with Dilaudid prn, attempt to minimize narcotics
Lovenox and SCDs for VTE ppx
Original Note:
Today's Communication / Plan
-
NGT removed, sips of clears
Assessment / Plan
-
60-year-old male who presented with large bowel obstruction due to obstructing mass in the descending colon; underwent sigmoidoscopy with biopsy of mass d/t increased risk of perforation; underwent semi-urgent surgery
POD 5 open subtotal colectomy with ileosigmoid anastomosis
AFVSS
Mild leukocytosis, slight up trend
H/H stable
Passing multiple stools/flatus. High volume output from NGT, suspect large ice chip intake contributing
Plan:
NGT removed
Follow on sips/chips
C/W IVF
OOB/Ambulate
Tylenol and Toradol with Dilaudid prn, attempt to minimize narcotics
Lovenox and SCDs for VTE ppx
Subjective Data
-
Date of Service: June 02, 2025
Pt seen and examined at bedside with Dr. Capellan. Denies n/v. Tolerating NGT clamp trial over the past 24hours. Passing flatus with stools. BM's becoming more formed. Pain improving overall.
Objective Data
-
Intake and Output
06/01/25 06/02/25 06/03/25
06:59 06:59 06:59
Intake Total 3110 / 3110 3630 / 3630 600 / 600
Output Total 3285 / 3285 1450 / 1450
Balance -175 / -175 2180 / 2180 600 / 600
Intake:
Oral fluids 360 / 360 720 / 720 600 / 600
IV fluids (Total) 2440 / 2440 2880 / 2880
IV piggybacks 160 / 160
Amount instilled into GI Tube ( 150 / 150 30 / 30
Total)
[place] Sump 150 / 150 30 / 30
Output:
Gastrointestinal tube output ( 2150 / 2150 950 / 950
Total)
[place] Sump 2150 / 2150 950 / 950
Urine, Voided 1135 / 1135 500 / 500
Other:
How many times incontinent 2
MODERATE amount urine
Vital Signs
Temp Pulse Resp BP Pulse Ox
98.9 F 75 17 136/82 97
06/02/25 07:00 06/02/25 07:00 06/02/25 07:00 06/02/25 07:00 06/02/25 09:07
Lab Results
06/02/25 08:10
06/02/25 08:10
Calcium 8.3 mg/dl (8.4-10.2) L 06/02/25 08:10
Magnesium 2.1 mg/dl (1.6-2.3) 06/01/25 05:17
Total Bilirubin 1.0 mg/dl (0.2-1.3) 05/27/25 07:36
AST 18 U/L (17-59) 05/27/25 07:36
ALT 15 U/L (0-50) 05/27/25 07:36
Alkaline Phosphatase 87 U/L (38-126) 05/27/25 07:36
Total Protein 7.0 g/dl (6.3-8.2) 05/27/25 07:36
Albumin 4.5 g/dl (3.5-5.0) 05/27/25 07:36
Physical Exam
-
NAD
ABD soft, ND, incisional tenderness
Midline incision with intact kevyn, ivan removed. Dressing changed.
Patient has a herring catheter: No
Patient has a central line: No
[2025-06-02 11:20] VITALS: BP 141/81; PULSE 76; O2SAT 98
[2025-06-02] MEDS: D5/0.45%NSS with KCL 20 MEQ 1000 IV (11:27)
[2025-06-02 15:04] VITALS: BP 145/81
[2025-06-02] MEDS: LOVENOX 40 MG SC (17:11)
[2025-06-02] MEDS: DILAUDID 1 MG IV (19:46)
[2025-06-02 23:04] VITALS: BP 135/80
[2025-06-03] MEDS: D5/0.45%NSS with KCL 20 MEQ 1000 IV (00:39)
[2025-06-03 06:52] LABS: Hematocrit 32.1 % (39.0-52.0); Hemoglobin 11.1 g/dL (13.0-18.0); Mean Corp Hgb Conc. 34.6 g/dL (33.0-37.0); Mean Corpuscular Volume 83.2 fL (80.0-94.0); Platelet Count 365 10^3/uL (130-400); Red Cell Dist. Width 12.6 % (11.5-14.5)
[2025-06-03 07:14] VITALS: BP 132/84
[2025-06-03 07:16] LABS: Blood Urea Nitrogen 8 mg/dl (9-20); Calcium 8.5 mg/dl (8.4-10.2); Carbon Dioxide 27 mmol/L (22-30); Chloride 102 mmol/L (98-107); Estimated Creatinine Clearance > 125 ml/min; Glucose 122 mg/dl (70-99); Potassium 3.6 mmol/L (3.5-5.1); Sodium 134 mmol/L (135-145); eGFR > 60.00
[2025-06-03] MEDS: HYDROCORTISONE 1% CREAM 1 APPLIC TOPICAL (08:58)
--- NOTE | 2025-06-03 10:04 | W.PN.CRS1 ---
Today's Communication / Plan
-
fulls
wound care
d/c ivf
Assessment/Plan
-
60-year-old male who presented with large bowel obstruction due to obstructing mass in the descending colon; underwent sigmoidoscopy with biopsy of mass d/t increased risk of perforation; underwent semi-urgent surgery
POD #6 open subtotal colectomy with ileosigmoid anastomosis
AFVSS
WBC 12.1 (13.8), Hgb 11.1 (11.1)
Plan:
-Advance diet to fulls. If passing a lot of flatus and can tolerate fulls, will advance to low residue later.
-D/C IVFs
-OOB/Ambulate
-Tylenol and Toradol with Dilaudid prn, attempt to minimize narcotics
-Lovenox and SCDs for VTE ppx
-Okay to shower
-Daily wound care
-OR pathology pending
Subjective Data
Procedure
05/28/2025- Subtotal colectomy with ileosigmoid anastomosis
Subjective Data
Date of Service: June 03, 2025
Patient states he is very hungry. He has some mild pain. He has loose bowel movments and gas.
Objective Data
-
Vital Signs
Temp Pulse Resp BP Pulse Ox
99.1 F 78 15 132/84 95
06/03/25 07:14 06/03/25 07:14 06/03/25 07:14 06/03/25 07:14 06/03/25 07:14
Intake & Output
06/02/25 06/03/25 06/04/25
06:59 06:59 06:59
Intake Total 3630 / 3630 1979
Output Total 1450 / 1450
Balance 2180 / 2180 1979
Intake:
Oral fluids 720 / 720 1080 / 1080
IV fluids (Total) 2880 / 2880 900 / 900
Amount instilled into GI Tube (
Total)
[place] Sump
Output:
Gastrointestinal tube output ( 950 / 950
Total)
[place] Sump 950 / 950
Urine, Voided 500 / 500
Other:
Number of approximated MODERATE 4
amounts of urine
How many times incontinent 2
MODERATE amount urine
Lab Results
06/03/25 05:31
06/03/25 05:31
Physical Exam
-
General: No Acute Distress and AOx3
Abdomen: Soft, Non Distended and Tender (mild)
Skin: Warm and Dry
Wound: Dressing Changed
Incision: Clear, Dry, Intact
--- NOTE | 2025-06-03 10:29 | CM ---
Patient seen at bedside on with patient also present. Patient on clear liquid and indicated that he was hopeful of discharge in 24-48 hours. Patient plan is for discharge home with no needs anticipated. CM will continue to follow for
discharge planning needs.
Plan; home with no needs anticipated.
[2025-06-03 11:22] VITALS: BP 154/82
[2025-06-03 16:15] VITALS: BP 158/71
[2025-06-03] MEDS: ZOFRAN 4 MG IV (17:10)
[2025-06-03] MEDS: ROXICODONE 5 MG PO (17:45)
[2025-06-03] MEDS: TORADOL 15 MG IV (17:46)
[2025-06-03] MEDS: LOVENOX 40 MG SC (17:47)
[2025-06-03] MEDS: HYDROCORTISONE 1% CREAM TOPICAL (20:00)
[2025-06-03 23:10] VITALS: BP 145/90
[2025-06-04] MEDS: TORADOL 15 MG IV ×2 (00:18→06:10)
[2025-06-04 07:15] VITALS: BP 119/72
[2025-06-04 07:24] LABS: Hematocrit 34.9 % (39.0-52.0); Hemoglobin 12.0 g/dL (13.0-18.0); Mean Corp Hgb Conc. 34.4 g/dL (33.0-37.0); Mean Corpuscular Volume 83.9 fL (80.0-94.0); Nucleated Red Blood Cells % 0 % (-); Platelet Count 395 10^3/uL (130-400); Red Cell Dist. Width 13.0 % (11.5-14.5)
[2025-06-04] MEDS: HYDROCORTISONE 1% CREAM 1 APPLIC TOPICAL (08:07)
[2025-06-04 08:33] LABS: Blood Urea Nitrogen 12 mg/dl (9-20); Calcium 8.9 mg/dl (8.4-10.2); Carbon Dioxide 26 mmol/L (22-30); Chloride 104 mmol/L (98-107); Estimated Creatinine Clearance 111 ml/min; Glucose 100 mg/dl (70-99); Potassium 3.7 mmol/L (3.5-5.1); Sodium 137 mmol/L (135-145); eGFR > 60.00
--- NOTE | 2025-06-04 10:11 | W.PN.CRS1 ---
Today's Communication / Plan
-
discharge
Assessment/Plan
-
60-year-old male who presented with large bowel obstruction due to obstructing mass in the descending colon; underwent sigmoidoscopy with biopsy of mass d/t increased risk of perforation; underwent semi-urgent surgery
POD #7 open subtotal colectomy with ileosigmoid anastomosis
AFVSS
WBC 8.9, Hgb 12.0 (11.1)
Plan:
-Continue low residue diet
-OOB/Ambulate
-Tylenol and Toradol with Dilaudid prn, attempt to minimize narcotics
-Lovenox and SCDs for VTE ppx
-Okay to shower
-Daily wound care
-OR pathology pending
-Okay for d/c today. All discharge instructions discussed with patient and including medications, activity levels and follow up. All questions addressed.
Subjective Data
Procedure
05/28/2025- Subtotal colectomy with ileosigmoid anastomosis
Subjective Data
Date of Service: June 04, 2025
Patient states he feels great. He has no complaints. He has bowel function. Denies nausea or vomiting. He is tolerating a diet. He had a good sleep last night.
Objective Data
-
Vital Signs
Temp Pulse Resp BP Pulse Ox
98.4 F 74 16 119/72 95
06/04/25 07:15 06/04/25 07:15 06/04/25 07:15 06/04/25 07:15 06/04/25 07:15
Intake & Output
06/03/25 06/04/25 06/05/25
06:59 06:59 06:59
Intake Total 1979 1560 / 1560 390 / 390
Balance 1979 1560 / 1560 390 / 390
Intake:
Oral fluids 1080 / 1079 1560 / 1560 390 / 390
IV fluids (Total) 900 / 900
Other:
Number of approximated MODERATE 4 6 2
amounts of urine
Number of unmeasured liquid
stools
Rectum 6
Lab Results
06/04/25 06:38
06/04/25 06:38
Physical Exam
-
General: No Acute Distress and AOx3
Abdomen: Soft, Non Distended and Non Tender
Skin: Warm and Dry
Incision: Clear, Dry, Intact
[2025-06-04 11:15] VITALS: BP 119/83
--- NOTE | 2025-06-04 11:47 | CM ---
Patient seen at bedside on . Patient stated he does not want VN and patient to transport home. CM will continue to follow for discharge planning needs.
Plan; home with no needs.
--- NOTE | 2025-06-04 13:25 | PTOTSP ---
PATIENT ABLE TO MOBILIZE INDEPENDENTLY ON LEVEL SURFACES WELL ELEVATIONS REQUIRING NO FURTHER SKILLED P.T. AT THIS TIME. WILL DISCHARGE FROM P.T. SERVICES.
== END 2025-06-04 13:37 | disposition home or self-care (01) | DRG 330 ==
LOC: 2 SOUTH 12:53
PROVIDERS: Physician Assistant; Registered Nurse; Surgery; ADMITTING PHYSICIAN Hospitalist; ATTENDING PHYSICIAN Surgery; EMERGENCY PHYSICIAN Emergency Medicine
PROC: 0DBM0ZZ Excision of Descending Colon, Open Approach (ICD-10-PCS; 2025-05-28)
DX: C18.6 Malignant neoplasm of descending colon (principal); K56.691 Other complete intestinal obstruction
CPT/HCPCS: 74177; 80048; 80053; 81003; 81015; 82378; 83690; 83735; 85025; 85027; 85610; 85730; 86850; 86900; 86901; 87070; 87075; 87086; 87205; 88305; 88307; 93005; 97116; 97163; 97167; 97530; 97535; 99285; C1776; J1335; Q9967